=== PATIENT | male | born 1975 | race Caucasian/White ===

== ENCOUNTER 2019-10-16 21:00 | Emergency (ER) | payer OTHER ==
[~2019-10-16] VITALS: Ht 182.9 cm; Wt 107.3 kg
[2019-10-16] MEDS ORDERED: ASPIRIN 81 MG TABLET CHEW PO ONE ×2 (21:30→23:00)
[2019-10-16 21:48] LABS: BASOPHILS # (AUTO) 0.06 x10^3/uL (0-0.1); BASOPHILS % (AUTO) 1 % (0-1); EOSINOPHILS # (AUTO) 0.16 x10^3/uL (0-0.4); EOSINOPHILS % (AUTO) 2 % (1-7); LYMPHOCYTES # (AUTO) 3.08 x10^3/uL (1-3.4); LYMPHOCYTES % (AUTO) 37 % (22-44); MD NO; MEAN CORPUSCULAR HEMOGLOBIN 32.2 pg (27.5-34.5); MEAN CORPUSCULAR HGB CONC 34.1 g/dL (33.2-36.2); MEAN CORPUSCULAR VOLUME 94.6 fL (81-97); MEAN PLATELET VOLUME 7.8 fL (7.4-10.4); MONOCYTES # (AUTO) 0.85 x10^3/uL (0.2-0.8); MONOCYTES % (AUTO) 10 % (2-9); NEUTROPHILS # (AUTO) 4.28 x10^3/uL (1.8-6.8); NEUTROPHILS % (AUTO) 51 % (42-75); PLATELET COUNT 217 x10^3/uL (130-400); RED BLOOD COUNT 5.08 x10^6/uL (4.38-5.82); RED CELL DISTRIBUTION WIDTH 12.6 % (9.4-14.8)
[2019-10-16 22:03] LABS: ALANINE AMINOTRANSFERASE 42 U/L (12-78); ANION GAP 5 mmol/L (5-15); CALCIUM 8.9 mg/dL (8.5-10.1); CHLORIDE 108 mmol/L (98-107); CREATININE 1.16 mg/dL (0.7-1.3)
[2019-10-16 22:08] LABS: ALKALINE PHOSPHATASE 74 U/L (45-117); BILIRUBIN,TOTAL 0.4 mg/dL (0.2-1.0); TOTAL PROTEIN 7.2 g/dL (6.4-8.2); TROPONIN I < 0.015 ng/mL (0.000-0.045)
--- NOTE | 2019-10-16 22:30 | NUR ---
PT BACK TO ROOM.
[2019-10-16] MEDS ORDERED: ASPIRIN 81 MG TABLET CHEW ONE (22:31)
--- NOTE | 2019-10-16 22:53 | NUR ---
PT ARRIVES TO ED WITH CHEST PAIN ON LEFT SIDED CHEST AREA. PT DENIES TRUAMA. PT REPORTS THAT IT IS CONSTANT AND NOT RELIEVED BY ANYTHING OTHER THAN REST. HE REPORTS IT GETS WORSE WITH ARM MOVEMENTS. PT REPORTS THAT HE WAS SOB WHEN WALKING. 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 PT CONNECTED TO ALL MONITORS AND CALL LIGHT IN REACH. AWAITING FURTHER ORDERS.
--- NOTE | 2019-10-16 22:56 | NUR ---
PT INFORMED NEW BLOOD DRAW AT 0100
--- NOTE | 2019-10-17 00:04 | NUR ---
REPORT TO DILCIA CAIN.
--- NOTE | 2019-10-17 00:07 | NUR ---
REPORT RECEIVED, POC DISCUSSED, CARE ASSUMED.
[2019-10-17 01:22] LABS: TROPONIN I < 0.015 ng/mL (0.000-0.045)
--- NOTE | 2019-10-17 02:25 | NUR ---
PT DC'D HOME WITH UNDERSTANDING OF INSTRUCTIONS. NO FURTHER EPISODES OF CHEST PAIN. PT TO DC DESK, GAIT STEADY.
[2019-10-17 02:26] VITALS: BP 125/75
== END 2019-10-17 02:28 | disposition home or self-care (01) ==
LOC: ED 23:06
DX: R07.89 Other chest pain (principal)
CPT/HCPCS: 36415; 71045; 80053; 84484; 85025; 93005; 99284